=== PATIENT | male | born 1970 | race Caucasian/White ===

== ENCOUNTER 2016-07-12 08:19 | Emergency (ER) | payer OTHER ==
--- NOTE | 2016-07-12 08:58 | DIAGNOSTIC IMAGING REPORT ---
PROCEDURE: XR HAND 3 OR 4 VIEWS - RIGHT INDICATION: TRAUMA/INJURY TECHNIQUE: Four views. COMPARISON: None. FINDINGS: Osseous structures, joint spaces, and soft tissues are normal. IMPRESSION: 1. Normal right hand.
--- NOTE | 2016-07-12 09:48 | ED ORDER SUMMARY ---
..... Patient: JAMEEL CHI OrderSheet [facility] VisitID: [id number] [address] [place] [address] 45y, M Registration Date/Time: 07/12/2016 ORDER SHEET Weight: 108.8 kg (measured) Allergies: None GENERAL ORDERS: Hand 3 or 4V Right Urgent (08:40 07/12/2016 Treasure Hameed per protocol) (8:50 Marjan) MEDICATION ORDERS: Toradol IM 60 mg (NOW) (09:25 07/12/2016 Susie Mota) (Ack 9:29 Treasure Gill.Silvana) (9:41 Darrius Hameed) IV FLUIDS: ORDER SHEET NOTES: [Electronically signed by Glory Castro R.N. (15:20 07/12/2016)] [Electronically signed by Yunior De Souza Dr. (22:19 07/12/2016)] [Electronically locked/signed by Glory Castro R.N. (15:20 07/12/2016)]
--- NOTE | 2016-07-12 09:48 | ED CLINICAL REPORT ---
Clinical Report - Physicians/Mid Levels [facility] [address] [place] [place] [address] 07/12/2016 8:19 [id number] Time Seen: 09:05; initial patient contact. Arrived- By private vehicle. Historian- patient. HISTORY OF PRESENT ILLNESS Chief Complaint: Injury to the right middle finger. The injury happened just prior to arrival. Occurred at work. The patient sustained a crush injury- dropped heavy object on hand. Patient is experiencing moderate pain. Patient denies injury to the head or neck. REVIEW OF SYSTEMS The patient has had swelling. No tingling, numbness, weakness or skin laceration. All systems otherwise negative, except as recorded above. PAST HISTORY Fall. Sprain. Contusion. Neck Pain. Neck Injury. Prior Injury, Same Area. Cellulitis. Bursitis. Hypertension. ADDITIONAL SURGERIES: Knee Surgery. The patient's dominant hand is the right. SOCIAL HISTORY Current every day smoker. No alcohol use or drug use. ADDITIONAL NOTES The nursing notes have been reviewed with agreement regarding the chief complaint, PMH and patient medications and allergies. PHYSICAL EXAM Vital Signs: 07/12/2016 08:25 BP: 178/117. HR: 101. RR: 14. O2 saturation: 97%. Temp: 97.7 F. Pain level now: 6/10. Have been reviewed. Hypertensive. Tachycardic. Bradypneic. Temperature normal. Oxygen saturation normal. Appearance: Alert. Oriented X3. Skin: Skin warm and dry. Skin intact. Extremities: Right middle finger: moderate tenderness and mild swelling of the PIP joint; limited movement secondary to pain and swelling (diminished flexion). Neurovascular intact distally. No erythema, laceration or ecchymosis. No wrist injury. Hand and wrist exam otherwise negative. Extremities otherwise negative. Neuro, Vascular and Tendons: Vascular status intact. Sensation intact. Motor intact. Tendon function intact. Neuro: Oriented X 3. No motor deficit. No sensory deficit. LABS, X-RAYS, AND EKG Rt UE Digits X-ray: No fracture. Normal alignment. No bony lesion, air in the soft tissue or foreign body. Soft tissues normal. Joint spaces normal. Views: AP, lateral and oblique of 3rd finger. Technique: good. The X-rays were independently viewed by me and interpreted contemporaneously by me. Prior films were not available for comparison. Interpretation time: 09:39. PROGRESS AND PROCEDURES Course of Care: 09:49 07/12/16. Pt out of BP meds x 2 days, needs to go to the pharmacy to fill. Educated him on the importance of med compliance. Disposition: Discharged to work in good and improved condition. Condition: good. CLINICAL IMPRESSION Sprain of the proximal interphalangeal joint of the right middle finger. Uncontrolled essential hypertension. INSTRUCTIONS Apply ice for 20 minutes four times a day. Don't apply ice directly to skin. Brayan tape fingers until better. Your Current Medications: CONTINUE TAKING THE FOLLOWING MEDICATIONS: Metoprolol Succinate ER Oral : Tablet Extended Release 24 Hour 100 mg, states he has not taken it in 3days. Prescription Medications: Diclofenac 50 mg tablets: take 1 tablet orally every 8 hours as needed for pain or stiffness. Dispense thirty (30). No refill. Follow-up: Follow up with your doctor in about two days if not better. Call for an appointment. Blood pressure screening was not performed during this visit because the patient has an active diagnosis of hypertension. The patient should follow up with a primary care provider for blood pressure management. (Electronically signed by Yunior De Souza Dr. 07/12/2016 22:19)
--- NOTE | 2016-07-12 09:48 | ED ORDER SUMMARY ---
..... Patient: JAMEEL CHI OrderSheet [facility] VisitID: [id number] [address] [place] [address] 45y, M Registration Date/Time: 07/12/2016 ORDER SHEET Weight: 108.8 kg (measured) Allergies: None GENERAL ORDERS: Hand 3 or 4V Right Urgent (08:40 07/12/2016 Treasure Hameed per protocol) (8:50 Marjan) MEDICATION ORDERS: Toradol IM 60 mg (NOW) (09:25 07/12/2016 Susie Mota) (Ack 9:29 Treasure Gill.Silvana) (9:41 Darrius Hameed) IV FLUIDS: ORDER SHEET NOTES: [Electronically signed by Glory Castro R.N. (15:20 07/12/2016)] [Electronically signed by Yunior De Souza Dr. (22:19 07/12/2016)] [Electronically locked/signed by Glory Castro R.N. (15:20 07/12/2016)]
--- NOTE | 2016-07-12 09:48 | ED CLINICAL REPORT ---
Clinical Report - Physicians/Mid Levels [facility] [address] [place] [address] 07/12/2016 8:19 [id number] Time Seen: 09:05; initial patient contact. Arrived- By private vehicle. Historian- patient. HISTORY OF PRESENT ILLNESS Chief Complaint: Injury to the right middle finger. The injury happened just prior to arrival. Occurred at work. The patient sustained a crush injury- dropped heavy object on hand. Patient is experiencing moderate pain. Patient denies injury to the head or neck. REVIEW OF SYSTEMS The patient has had swelling. No tingling, numbness, weakness or skin laceration. All systems otherwise negative, except as recorded above. PAST HISTORY Fall. Sprain. Contusion. Neck Pain. Neck Injury. Prior Injury, Same Area. Cellulitis. Bursitis. Hypertension. ADDITIONAL SURGERIES: Knee Surgery. The patient's dominant hand is the right. SOCIAL HISTORY Current every day smoker. No alcohol use or drug use. ADDITIONAL NOTES The nursing notes have been reviewed with agreement regarding the chief complaint, PMH and patient medications and allergies. PHYSICAL EXAM Vital Signs: 07/12/2016 08:25 BP: 178/117. HR: 101. RR: 14. O2 saturation: 97%. Temp: 97.7 F. Pain level now: 6/10. Have been reviewed. Hypertensive. Tachycardic. Bradypneic. Temperature normal. Oxygen saturation normal. Appearance: Alert. Oriented X3. Skin: Skin warm and dry. Skin intact. Extremities: Right middle finger: moderate tenderness and mild swelling of the PIP joint; limited movement secondary to pain and swelling (diminished flexion). Neurovascular intact distally. No erythema, laceration or ecchymosis. No wrist injury. Hand and wrist exam otherwise negative. Extremities otherwise negative. Neuro, Vascular and Tendons: Vascular status intact. Sensation intact. Motor intact. Tendon function intact. Neuro: Oriented X 3. No motor deficit. No sensory deficit. LABS, X-RAYS, AND EKG Rt UE Digits X-ray: No fracture. Normal alignment. No bony lesion, air in the soft tissue or foreign body. Soft tissues normal. Joint spaces normal. Views: AP, lateral and oblique of 3rd finger. Technique: good. The X-rays were independently viewed by me and interpreted contemporaneously by me. Prior films were not available for comparison. Interpretation time: 09:39. PROGRESS AND PROCEDURES Course of Care: 09:49 07/12/16. Pt out of BP meds x 2 days, needs to go to the pharmacy to fill. Educated him on the importance of med compliance. Disposition: Discharged to work in good and improved condition. Condition: good. CLINICAL IMPRESSION Sprain of the proximal interphalangeal joint of the right middle finger. Uncontrolled essential hypertension. INSTRUCTIONS Apply ice for 20 minutes four times a day. Don't apply ice directly to skin. Brayan tape fingers until better. Your Current Medications: CONTINUE TAKING THE FOLLOWING MEDICATIONS: Metoprolol Succinate ER Oral : Tablet Extended Release 24 Hour 100 mg, states he has not taken it in 3days. Prescription Medications: Diclofenac 50 mg tablets: take 1 tablet orally every 8 hours as needed for pain or stiffness. Dispense thirty (30). No refill. Follow-up: Follow up with your doctor in about two days if not better. Call for an appointment. Blood pressure screening was not performed during this visit because the patient has an active diagnosis of hypertension. The patient should follow up with a primary care provider for blood pressure management. (Electronically signed by Yunior De Souza Dr. 07/12/2016 22:19)
--- NOTE | 2016-07-12 09:48 | ED NURSING NOTES ---
Clinical Report - Nurses [facility] [address] [place] [address] 07/12/2016 8:19 Patient: JAMEEL CHI TRIAGE Triage time 08:25. Acuity: LEVEL 4. Chief Complaint: (finger injury). 08:33 07/12/16. Alert. No acute distress. SEPSIS SCREEN: Sepsis Screen. Negative (no infection suspected/documented). AUBREE COMA SCORE: Aubree Coma Scale: 15- eyes open spontaneously (4); best verbal response- oriented x 4 (5); best motor response- obeys commands (6). --08:34 Glory Castro R.N. 08:25 07/12/16. BP: 178/117 taken while sitting. HR: 101. RR: 14. O2 saturation: 97%. Temp: 97.7 F. Pain level now: 10. Additional comments: pt states he usually takes metoprolol, but hasn't for several days. . --08:34 Glory Castro R.N. Weight: 108.8 kg measured. Height/Length: 74 inches Measured. BMI: 30.8. --08:24 Glory Castro R.N. Medications Metoprolol Succinate ER Oral (Tablet Extended Release 24 Hour 100 mg) (states he has not taken it in 3days). --08:34 Glory Castro R.N. The following entry was struck by Glory Castro R.N., 08:34 (07/12/16) Reason - wrong value. <<STRICKEN ENTRY-- None. --08:27 Glory Castro R.N. --END STRIKE>>. Allergies None. --08:28 Glory Castro R.N. History Arrived by private vehicle. Historian: patient. Location of injuries: right middle finger. This occurred today. ( pt states he injured his finger while working on a car. pt says he injured the same finger a couple months ago and "it has never been right since"). He has had back pain (comes and goes). PAST MEDICAL HX: Immunizations: status is unknown. SOCIAL HX: Light tobacco smoker- less than 1/2 a pack per day. No alcohol use or drug use. FALL RISK ASSESSMENT: Fall risk assessment completed. No fall risk identified. NUTRITIONAL RISK ASSESSMENT: The nutritional risk assessment revealed no deficiencies. FUNCTIONAL ASSESSMENT: Functional assessment: no impairments noted. LEARNING NEEDS ASSESSMENT: The learning needs assessment revealed no barriers. SKIN INTEGRITY ASSESSMENT: Skin integrity risk assessment completed. No skin integrity risk identified. --08:34 Glory Castro R.N. PROBLEMS: Fall. Sprain. Contusion. Neck Pain. Neck Injury. Prior Injury, Same Area. Cellulitis. Bursitis. Hypertension. Tetanus Status. Immunizations. --08:28 Glory Castro R.N. ADDITIONAL SURGERIES: Knee Surgery. --08:28 Glory Castro R.N. Interventions ID band on patient. To treatment room. --08:34 Glory Castro R.N. PHYSICAL ASSESSMENT 08:38 07/12/16. Ambulatory to room. GENERAL / NEURO / PSYCH: Alert. Oriented X 4. Appears in no acute distress. RESPIRATORY: Respirations not labored. CVS: Pulses within normal limits. Capillary refill less than 2 seconds. EXTREMITIES: Right middle finger: tenderness and swelling. ( R middle finger looks swollen, possibly deformed. Pt is able to move finger with pain.). SKIN: Skin is warm and dry. --08:38 Glory Castro R.N. NURSING PROGRESS NOTES 08:38 07/12/16. Two patient identifiers checked. Call light placed in reach. Bed placed in lowest position. Brakes of bed on. Patient ready for evaluation- chart flagged and notification provided. --08:38 Glory Castro R.N. 09:41 07/12/2016 Toradol (Ketorolac Tromethamine) IM 60 mg given. Allergies verified and confirmed 5 rights. --09:41 Vijay Kraft R.N. 09:59 Jul 12 2016. Right third and fourth edgard-taped; padding placed between digits. --10:01 Beau Samuel. DISPOSITION / DISCHARGE 10:03 07/12/16. The goals identified in the patient's plan of care were met. Discharge instructions provided and reviewed with the patient. Reviewed medication(s). Treatments reviewed. Patient verbalized understanding. Written instructions provided in [place]. The patient was discharged by the physician. He was discharged home. He left the Emergency Department ambulatory. FALL RISK ASSESSMENT: Fall risk assessment completed. No fall risk identified. --10:03 Glory Castro R.N. 10:02 07/12/16. BP: 179/119. HR: 110. RR: 16. O2 saturation: 98%. Temp: deferred. Pain level now: 07/22. --10:03 Glory Castro R.N. Departure time: 10:01. --10:03 Glory Castro R.N. Locked/Released at 07/12/2016 15:20 by Glory Castro R.N.
--- NOTE | 2016-07-12 22:20 | ED MAR SUMMARY ---
..... Medication Administration Record [facility] [address] [place] [place] [address] Patient: JAMEEL CHI Visit ID: [id number] 45y, M Weight: 108.8 kg Height/Length: 74 in BMI: 30.8 ALLERGIES: None Given 09:41 07/12/2016 Vijay Kraft R.N. Medication Administered: TORADOL [IM] (KETOROLAC TROMETHAMINE), Dose: 60 mg IM. Medication Ordered: Toradol IM 60 mg (NOW).
--- NOTE | 2016-07-12 22:20 | ED MAR SUMMARY ---
..... Medication Administration Record [facility] [address] [place] [address] Patient: JAMEEL CHI Visit ID: [id number] 45y, M Weight: 108.8 kg Height/Length: 74 in BMI: 30.8 ALLERGIES: None Given 09:41 07/12/2016 Vijay Kraft R.N. Medication Administered: TORADOL [IM] (KETOROLAC TROMETHAMINE), Dose: 60 mg IM. Medication Ordered: Toradol IM 60 mg (NOW).
--- NOTE | 2016-07-12 22:20 | ED DISCHARGE INSTRUCTIONS ---
Patient: JAMEEL CHI General Instructions [facility] VisitID: [id number] [place] [address] 45y, M Registration Date/Time: 07/12/2016 Sprain of the proximal interphalangeal joint of the right middle finger. Uncontrolled essential hypertension. INSTRUCTIONS Apply ice for 20 minutes four times a day. Don't apply ice directly to skin. Edgard tape fingers until better. Your Current Medications: CONTINUE TAKING THE FOLLOWING MEDICATIONS: Metoprolol Succinate ER Oral : Tablet Extended Release 24 Hour 100 mg, states he has not taken it in 3days. Prescription Medications: Diclofenac 50 mg tablets: take 1 tablet orally every 8 hours as needed for pain or stiffness. Dispense thirty (30). No refill. Follow-up: Follow up with your doctor in about two days if not better. Call for an appointment. Blood pressure screening was not performed during this visit because the patient has an active diagnosis of hypertension. The patient should follow up with a primary care provider for blood pressure management. ADDITIONAL INFORMATION Sprain, Finger A sprain is a stretching or tearing of the ligaments that hold a joint together. There are no broken bones. Sprains take from three to six weeks to heal. A sprained finger may be treated with a splint or "edgard tape" (taping the injured finger to the one next to it for support). Minor sprains may require no additional support. Home care The following guidelines will help you care for your injury at home: 1) Keep your hand elevated to reduce pain and swelling. This is very important during the first 48 hours. 2) Apply an ice pack (ice cubes in a plastic bag, wrapped in a towel) over the injured area for 20 minutes every 12 hours the first day. You should continue with ice packs 34 times a day for the next two days. Continue the use of ice packs for relief of pain and swelling as needed. 3) If edgard tape was applied and it becomes wet or dirty, change it. You may replace it with paper, plastic or cloth tape. Cloth tape and paper tapes must be kept dry. Keep the edgard tape in place for at least four weeks. 4) If a splint was applied, wear it for the time advised. 5) You may use acetaminophen or ibuprofen to control pain, unless another pain medicine was prescribed.If you have chronic liver or kidney disease or ever had a stomach ulcer or GI bleeding, talk with your doctor before using these medicines. Follow-up care Follow up with your doctor, or as directed, if the pain does not begin to improve. Finger joints will become stiff if immobile for too long. If a splint was applied, ask your doctor when it is safe to begin [id number] exercises. Any X-rays you had today dont show any broken bones, breaks, or fractures. Sometimes fractures dont show up on the first X-ray. Bruises and sprains can sometimes hurt as much as a fracture. These injuries can take time to heal completely. If your symptoms dont improve or they get worse, talk with your doctor. You may need a repeat X-ray. When to seek medical care Get prompt medical attention if any of the following occur: Pain or swelling increases Fingers or hand becomes cold, blue, numb, or tingly High Blood Pressure --Established High Blood Pressure (Hypertension) is a chronic disease. The cause is unknown in most cases. It can usually be controlled with lifestyle changes and/or medicines. Symptoms of high blood pressure may include headache, dizziness, visual changes, chest pain and shortness of breath. Sometimes it causes no symptoms at all. However, even if there are no symptoms, untreated high blood pressure increases the risk of heart attack, also known as acute myocardial infarction, or AMI, and stroke. It is a serious health risk and should not be ignored. A normal blood pressure is 120/80 or less. The first (top) number is the "systolic" pressure. The second (bottom) number is the "diastolic" pressure. Hypertension exists when either the top number is 140 or higher, OR the bottom number is 90 or higher on repeated measurements. Home Care: All patients with high blood pressure should do the following to lower their pressure. If you are on medicines, then these methods may reduce or eliminate your need for medicines in the future. Begin a weight loss program if you are overweight. Reduce your salt intake. Avoid high salt foods (olives, pickles, smoked meats, salted potato chips, etc.). Do not add salt to your food at the table. Use only small amounts of salt when cooking. Begin an exercise program. Discuss with your doctor what type of exercise program would be best for you. It doesn't have to be difficult. Even brisk walking for 20 minutes three times a week is a good form of exercise. Avoid medicines which contain heart stimulants. This includes many cold and sinus decongestant pills and sprays as well as diet pills. Check the warnings about hypertension on the label. Stimulants such as amphetamine or cocaine could be lethal for someone with hypertension. Never take these. Limit your caffeine intake or switch to caffeine-free products. Stop smoking. If you are a long-time smoker, this can be hard. Enroll in a stop-smoking program to improve your chance of success. Learning how to handle stress better is an important part of any program to lower blood pressure. Learn about relaxation methods such as meditation, yoga or biofeedback. If medicines were prescribed, take them exactly as directed. Missing doses may cause your blood pressure get out of control. Consider buying an automatic blood pressure machine (available at most pharmacies). Use this to monitor your blood pressure at home and report the results to your doctor. Follow Up: Regular visits to your own physician for blood pressure checks and medicine adjustment is an important part of your care. Make a follow-up appointment as directed by our staff. Get Prompt Medical Attention if any of the following occur: Chest pain or shortness of breath Severe headache Throbbing or rushing sound in the ears Nosebleed Sudden severe abdominal pain Extreme drowsiness, confusion or fainting Dizziness or vertigo (dizziness with spinning sensation) Weakness of an arm or leg or one side of the face Difficulty with speech or vision You have been given the following additional information: Sprain Finger Hypertension, Established (Electronically signed by Yunior De Souza Dr. 07/12/2016 22:19)
--- NOTE | 2016-07-12 22:20 | ED MED RECONCILIATION SUMMARY ---
Patient: JAMEEL CHI Medication Reconciliation Report [facility] VisitID: [id number] [address] [place] [address] 45y, M Registration Date/Time: 07/12/2016 Weight: 108.8 kg Height/Length: 74 in. BMI: 30.8 ALLERGIES: None The patient's Home Medications are listed below: CONTINUE TAKING THE FOLLOWING MEDICATIONS: Metoprolol Succinate ER Oral (100 mg), states he has not taken it in 3days The source(s) of the original Home Medication information: Not obtained. The following Medications were given to the patient in the Emergency Department: Toradol [IM] IM 60 mg, administered: 07/12/2016 9:41:00 AM The following Medications were prescribed to the patient: Diclofenac 50 mg tablets: take 1 tablet orally every 8 hours as needed for pain or stiffness. Dispense thirty (30). No refill. -- Yunior De Souza Dr.
--- NOTE | 2016-07-12 22:20 | ED MED RECONCILIATION SUMMARY ---
Patient: JAMEEL CHI Medication Reconciliation Report [facility] VisitID: [id number] [address] [place] [address] 45y, M Registration Date/Time: 07/12/2016 Weight: 108.8 kg Height/Length: 74 in. BMI: 30.8 ALLERGIES: None The patient's Home Medications are listed below: CONTINUE TAKING THE FOLLOWING MEDICATIONS: Metoprolol Succinate ER Oral (100 mg), states he has not taken it in 3days The source(s) of the original Home Medication information: Not obtained. The following Medications were given to the patient in the Emergency Department: Toradol [IM] IM 60 mg, administered: 07/12/2016 9:41:00 AM The following Medications were prescribed to the patient: Diclofenac 50 mg tablets: take 1 tablet orally every 8 hours as needed for pain or stiffness. Dispense thirty (30). No refill. -- Yunior De Souza Dr.
== END 2016-07-12 10:01 | disposition home or self-care (01) ==
LOC: ED SRH 08:19
DX: S63.634A Sprain of interphalangeal joint of right ring finger, initial encounter (principal); I10 Essential (primary) hypertension; W23.0XXA Caught, crushed, jammed, or pinched between moving objects, initial encounter; Y93.9 Activity, unspecified; Y92.9 Unspecified place or not applicable; Y99.0 Civilian activity done for income or pay

== ENCOUNTER 2016-09-29 15:16 | Emergency (ER) | payer OTHER ==
--- NOTE | 2016-09-29 18:04 | ED NURSING NOTES ---
Clinical Report - Nurses [facility] [address] [place] [address] 09/29/2016 15:17 [id number] Triage time 15:Sep 29 2016. Chief Complaint: HEADACHE. SEPSIS SCREEN: Sepsis Screen. Negative (no infection suspected/documented). AUBREE COMA SCORE: Aubree Coma Scale: 14- eyes open to voice (3); best verbal response- oriented x 4 (5); best motor response- obeys commands (6). --15:30 Kerwin Osborne R.N. 15:25 09/29/16. BP: 124/91. HR: 95. RR: 16. O2 saturation: 99% on room air. Pain level now: 02/21. --15:30 Kerwin Osborne R.N. 18:35 09/29/16. Temp: 98.2 F. --18:36 Kerwin Osborne R.N. Weight: 113.3 kg stated. Height/Length: 74 inches Per Patient. BMI: 32.1. --15:24 Kerwin Osborne R.N. Medications Metoprolol. --15:27 Kerwin Osborne R.N. Allergies No Known Drug Allergy. --15:27 Kerwin Osborne R.N. History Arrived by private vehicle. Historian: patient. Accompanied by friend. Primary physician (Dr. Case). This started 4 days ago. ( Pt experienced a neck injury 3 years ago and has had subsequent headaches ever since.). He has had nausea, weakness and numbness. 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 PAST MEDICAL HX: Hypertension. Headaches. Immunizations: up-to-date. SOCIAL HX: Light tobacco smoker- less than 1/2 a pack per day. No alcohol use or drug use. No recent travel. No infectious disease exposure. No known contact with a sick individual. SELF HARM ASSESSMENT: A self harm assessment was performed. The patient answered "yes" to the question "Have you recently felt down, depressed, or hopeless?" and "no" to the question "Do you have thoughts of harming or killing yourself?", "Are you here because you tried to hurt yourself?" and "Have you recently had thoughts about harming or killing others?". FALL RISK ASSESSMENT: Fall risk assessment completed. No fall risk identified. NUTRITIONAL RISK ASSESSMENT: The nutritional risk assessment revealed no deficiencies. FUNCTIONAL ASSESSMENT: Functional assessment: no impairments noted. LEARNING NEEDS ASSESSMENT: The learning needs assessment revealed no barriers. ABUSE ASSESSMENT: Abuse assessment: (Pt is homeless, states he feels unsafe for that reason.) The patient was asked "Do you feel safe in your home?". SKIN INTEGRITY ASSESSMENT: Skin integrity risk assessment completed. No skin integrity risk identified. --15:30 Kerwin Osborne R.N. PROBLEMS: Fall. Sprain. Contusion. Neck Pain. Neck Injury. Prior Injury, Same Area. Cellulitis. Bursitis. Hypertension. Tetanus Status. Immunizations. --15:27 Kerwin Osborne R.N. ADDITIONAL SURGERIES: Knee Surgery. --15:27 Kerwin Osborne R.N. Pyloric Stenosis Surgery. R ankle ORIF. --15:28 Kerwin Osborne R.N. Interventions ID band on patient. To treatment room. --15:30 Kerwin Osborne R.N. PHYSICAL ASSESSMENT Ambulatory to room. GENERAL / NEURO / PSYCH: Oriented X 4. Appears in pain. Mood/affect abnormal (depressed). Pupillary exam: Pupils are equal, round, and reactive to light. HEENT: No facial asymmetry noted. Photophobia present. RESPIRATORY: Respirations not labored. SKIN: Skin is warm and dry. --15:31 Kerwin Osborne R.N. GI / : The patient has had nausea. --15:31 Kerwin Osborne R.N. NURSING PROGRESS NOTES The plan of care for this patient has been created. Head of bed elevated. Reassurance given. Lights dimmed. Two patient identifiers checked. Call light placed in reach. Side rails up. Patient ready for evaluation. --15:31 Kerwin Osborne R.N. 16:26 09/29/2016 Site #1 started via IV in the right antecubital space with an 20g angiocath, with aseptic technique and good blood return; one attempt. Saline lock flushed with 10 mL saline. --16:26 Kerwin Osborne R.N. 16:26 09/29/2016 Started bag #1 1000 mL IV Fluids IV NS (Saline); bolus of 1000 mL wide open via site #1. Allergies verified and confirmed 5 rights. IV patency established. IV site checked: no pain, redness, or swelling. IV flushed thoroughly pre- and post-medication administration. Completed per protocol. --16:26 Kerwin Osborne R.N. 16:35 09/29/2016 Reglan (Metoclopramide HCl) IVP 10 mg given over 2 minute(s) via site #1. Allergies verified and confirmed 5 rights. IV patency established. IV site checked: no pain, redness, or swelling. IV flushed thoroughly pre- and post-medication administration. IVP given by RN. --16:35 Kerwin Osborne R.N. 16:36 09/29/2016 Toradol IVP 30 mg given over 2 minute(s) via site #1. Allergies verified and confirmed 5 rights. IV patency established. IV site checked: no pain, redness, or swelling. IV flushed thoroughly pre- and post-medication administration. IVP given by RN. --16:36 Kerwin Osborne R.N. 16:38 09/29/2016 Benadryl (DiphenhydrAMINE HCl) IVP 25 mg given over 2 minute(s) via site #1. Allergies verified, confirmed 5 rights and sedative warning given to the patient. IV patency established. IV site checked: no pain, redness, or swelling. IV flushed thoroughly pre- and post-medication administration. IVP given by RN. --16:38 Kerwin Osborne R.N. ( Pt c/o severe discomfort to his neck, refused repositioning interventions or additional pillows, pain medications administered.). --16:39 Kerwin Osborne R.N. 16:38 09/29/16. BP: 123/87. HR: 82. RR: 16. O2 saturation: 97% on room air. Pain level now: 02/21. --16:39 Kerwin Osborne R.N. 17:28 09/29/2016 Decadron IVP 10 mg given over 2 minute(s) via site #1. Allergies verified and confirmed 5 rights. IV patency established. IV site checked: no pain, redness, or swelling. IV flushed thoroughly pre- and post-medication administration. IVP given by RN. --17:28 Kerwin Osborne R.N. ( Pt reports he is feeling a little bit better, resting in room, no needs voiced at this time.). --17:30 Kerwin Osborne R.N. 17:09/29/2016 IV Fluids IV NS Discontinued: bag #1 infused. Total amount infused: 1000 mL. IV patency established. IV site checked: no pain, redness, or swelling. IV flushed thoroughly. --17:31 Kerwin Osborne R.N. 17:09/29/2016 Reglan IVP Response: no adverse reaction symptoms have improved. --17:31 Kerwin Osborne R.N. 17:09/29/2016 Toradol IVP Response: no adverse reaction pain is improving. Symptoms have improved. --17:31 Kerwin Osborne R.N. 17:09/29/2016 Benadryl IVP Response: no adverse reaction symptoms have improved. --17:31 Kerwin Osborne R.N. 17:09/29/16. BP: 126/85. HR: 96. RR: 18. O2 saturation: 100% on room air. --17:35 Kerwin Osborne R.N. 18:20 09/29/2016 Site #1 removed upon discharge. Bandaid applied. --18:25 Dalton Macias R.N. 18:20 09/29/2016 Decadron IVP Response: no adverse reaction. --18:35 Kerwin Osborne R.N. DISPOSITION / DISCHARGE No learning barriers present. Discharge instructions provided and reviewed with the patient. Reviewed medication(s) side effects and course information. Prescription(s) given to the patient. Patient verbalized understanding. Written instructions provided in Yi. The patient was discharged by the nurse practitioner. He was discharged home. He left the Emergency Department ambulatory and via private vehicle. ( pt dc only by this RN, pt ambulatory to lobby with steady gait, given rx and f/u). --18:26 Dalton Macias R.N. 18:24 09/29/16. BP: 129/86. HR: 78. RR: 17. O2 saturation: 99%. Temp: 98.2 F. Pain level now: 07/22. --18:26 Dalton Macias R.N. Departure time: 182. --18:27 Dalton Macias R.N. Locked/Released at 09/29/2016 18:36 by Kerwin Osborne R.N.
--- NOTE | 2016-09-29 18:04 | ED ORDER SUMMARY ---
..... Patient: JAMEEL CHI OrderSheet [facility] VisitID: [id number] [address] [place] [address] 46y, M Registration Date/Time: 09/29/2016 ORDER SHEET Weight: 113.3 kg (stated) Allergies: No Known Drug Allergy GENERAL ORDERS: MEDICATION ORDERS: IV FLUIDS: Toradol IV 30 mg (NOW) (16:18 09/29/2016 Jaxon Mota) (16:36 MCook R.N.) IV NS : initial bolus 1000 mL (1000 mL/hr), then none - for X1 (NOW) (16:18 09/29/2016 Jxaon Mota) (16:26 Mehreen R.N.) Reglan IV 10 mg (NOW) (16:09/29/2016 Jaxon Mota) (16:35 Mehreen R.N.) Benadryl IV 25 mg (NOW) (16:19 09/29/2016 Jaxon Mota) (16:38 Mehreen R.N.) Decadron IV 10 mg (NOW) (16:19 09/29/2016 Jaxon Mota) (17:28 Mehreen R.N.) ORDER SHEET NOTES: [Electronically signed by Kerwin Osborne R.N. (18:36 09/29/2016)] [Electronically signed by Ernie Rabago Dr. (09:51 10/06/2016)] [Electronically locked/signed by Kerwin Osborne R.N. (18:36 09/29/2016)]
--- NOTE | 2016-09-29 18:04 | ED CLINICAL REPORT ---
Clinical Report - Physicians/Mid Levels [facility] [address] [place] [address] 09/29/2016 15:17 Patient: JAMEEL CHI Time Seen: 1612. Arrived- By private vehicle. Historian- patient. HISTORY OF PRESENT ILLNESS Chief Complaint: HEADACHE. Is still present and worsening. (unchanged). This started past several days; reached max intensity today. It was gradual in onset and has been constant but is not gone now. Patient was last known well (several days ago). Onset during rest. It is described as similar to previous headaches. Has had neck pain and located in the occipital region. At its maximum, severity described as severe. When seen in the E.D., severity described as severe. Modifying factors: worsened by bright light and noise; relieved by nothing. No preceding symptoms, blurred vision, photophobia, associated nausea or numbness. No vomiting. No recent travel. Similar symptoms previously: Many times. Recent medical care: Not recently seen/assessed. REVIEW OF SYSTEMS All systems otherwise negative, except as recorded above. PAST HISTORY See nurses notes. Medications: Metoprolol. Allergies: No Known Drug Allergy. SOCIAL HISTORY Smoker- current status unknown. No alcohol use or drug use. No recent travel. Is a local resident. ADDITIONAL NOTES The nursing notes have been reviewed. PHYSICAL EXAM Vital Signs: 09/29/2016 15:25 BP: 124/91. HR: 95. RR: 16. O2 saturation: 99%. Pain level now: 10/10. Oxygen saturation normal. Appearance: Alert. No acute distress. (non-toxic. pleasant. cooperative.). Eyes: Pupils equal, round and reactive to light. Eyes normal inspection. ENT: Ears normal. Nose normal. Pharynx normal. Neck: Normal inspection. Neck supple. No meningeal signs. CVS: Normal heart rate and rhythm. Heart sounds normal. Pulses normal. Respiratory: No respiratory distress. Breath sounds normal. Abdomen: Soft and nontender. No organomegaly. Skin: Skin warm and dry. Normal skin color. No rash. Normal skin turgor. Extremities: Extremities exhibit normal ROM. No lower extremity edema. Neuro: Oriented X 3. Alert. Mood/affect normal. Speech normal. Cranial nerves normal (as tested). No cerebellar findings. No motor deficit. No sensory deficit. Reflexes normal. PROGRESS AND PROCEDURES Course of Care: Patient is a pleasant 46 yo male with hx of headaches likely from injury 3 years ago presenting for evaluation of headache. Patient as been evaluated for SAH, increased ICP, meningitis, and space occupying lesion. Patients exam and history are not consistent with these entities. Patient is agreeable to treatment for headache. Medications have been ordered after reviewing allergies and intolerances. Patient will be reevaluated after the medications have been given. Time course for headache reached max intensity > 1 hour after onset of headache. Patient was reevaluated and found to be significantly improved. Patient reports being able to return home and follow up with doctor. Repeat examination continues to be benign. I discussed with the patient workup, diagnosis, home care, follow-up, and return precautions. All questions have been answered. The patient expressed understanding of these instructions and was agreeable to them. Do not feel patient needs to be admitted to the hospital or require further ED workup/evaluation. Disposition: Discharged. Condition: good. CLINICAL IMPRESSION Acute headache (posterior). 09/29/2016 17:31 BP: 126/85. HR: 96. RR: 18. O2 saturation: 100%. 09/29/2016 16:38 BP: 123/87. HR: 82. RR: 16. O2 saturation: 97%. Pain level now: 10/10. Moderate nausea. No vomiting. INSTRUCTIONS Warnings: GENERAL WARNINGS: Return or contact your physician immediately if your condition worsens or changes unexpectedly, if not improving as expected, or if other problems arise. SPECIFICALLY, return if you develop fever, vomiting, numbness, weakness, difficulty thinking, visual disturbances, fainting or extreme fatigue. Your Current Medications: CONTINUE TAKING THE FOLLOWING MEDICATIONS: Metoprolol*. Prescription Medications: Zofran (orally disintegrating tablets) 4 mg: take 1 orally every 8 hours as needed for nausea and vomiting. Dispense ten (10). No refill. Substitution is permissible. [place] 5 mg / 325 mg tablets: take 1 orally every 6 hours as needed for pain. Dispense ten (10). No refill. Substitution is permissible. Follow-up: Return to the emergency department as needed. Follow up with your doctor in three days. Reason for referral: recheck today's concerns. Screening today revealed the patient's blood pressure to be in the normal range. The patient should follow up with a primary care provider for blood pressure management. Understanding of the discharge instructions verbalized by patient. (Electronically signed by Ernie Rabago Dr. 10/06/2016 9:51)
--- NOTE | 2016-09-29 18:04 | ED ORDER SUMMARY ---
..... Patient: JAMEEL CHI OrderSheet [facility] VisitID: [id number] [address] [place] [address] 46y, M Registration Date/Time: 09/29/2016 ORDER SHEET Weight: 113.3 kg (stated) Allergies: No Known Drug Allergy GENERAL ORDERS: MEDICATION ORDERS: IV FLUIDS: Toradol IV 30 mg (NOW) (16:18 09/29/2016 Jaxon Mota) (16:36 MCook R.N.) IV NS : initial bolus 1000 mL (1000 mL/hr), then none - for X1 (NOW) (16:18 09/29/2016 Jaxon Mota) (16:26 Mehreen R.N.) Reglan IV 10 mg (NOW) (16:09/29/2016 Jaxon Mota) (16:35 Mehreen R.N.) Benadryl IV 25 mg (NOW) (16:19 09/29/2016 Jaxon Mota) (16:38 Mehreen R.N.) Decadron IV 10 mg (NOW) (16:19 09/29/2016 Jaxon Mota) (17:28 Mehreen R.N.) ORDER SHEET NOTES: [Electronically signed by Kerwin Osborne R.N. (18:36 09/29/2016)] [Electronically signed by Ernie Rabago Dr. (09:51 10/06/2016)] [Electronically locked/signed by Kerwin Osborne R.N. (18:36 09/29/2016)]
--- NOTE | 2016-10-06 09:52 | ED MED RECONCILIATION SUMMARY ---
Patient: JMAEEL CHI Medication Reconciliation Report [facility] VisitID: [id number] [address] [place] [address] 46y, M Registration Date/Time: 09/29/2016 Weight: 113.3 kg Height/Length: 74 in. BMI: 32.1 ALLERGIES: No Known Drug Allergy The patient's Home Medications are listed below: CONTINUE TAKING THE FOLLOWING MEDICATIONS: Metoprolol The source(s) of the original Home Medication information: Not obtained. The following Medications were given to the patient in the Emergency Department: IV NS IV Fluids bolus 1000 mL wide open, administered: 09/29/2016 4:26:00 PM Reglan [IVP] IVP 10 mg, administered: 09/29/2016 4:35:00 PM Toradol [IVP] IVP 30 mg, administered: 09/29/2016 4:36:00 PM Benadryl [IVP] IVP 25 mg, administered: 09/29/2016 4:38:00 PM Decadron [IVP] IVP 10 mg, administered: 09/29/2016 5:28:00 PM The following Medications were prescribed to the patient: Zofran (orally disintegrating tablets) 4 mg: take 1 orally every 8 hours as needed for nausea and vomiting. Dispense ten (10). No refill. Substitution is permissible. -- Ernie Rabago Dr. [place] 5 mg / 325 mg tablets: take 1 orally every 6 hours as needed for pain. Dispense ten (10). No refill. Substitution is permissible. -- Ernie Rabago Dr.
--- NOTE | 2016-10-06 09:52 | ED MED RECONCILIATION SUMMARY ---
Patient: JAMEEL CHI Medication Reconciliation Report [facility] VisitID: [id number] [address] [place] [address] 46y, M Registration Date/Time: 09/29/2016 Weight: 113.3 kg Height/Length: 74 in. BMI: 32.1 ALLERGIES: No Known Drug Allergy The patient's Home Medications are listed below: CONTINUE TAKING THE FOLLOWING MEDICATIONS: Metoprolol The source(s) of the original Home Medication information: Not obtained. The following Medications were given to the patient in the Emergency Department: IV NS IV Fluids bolus 1000 mL wide open, administered: 09/29/2016 4:26:00 PM Reglan [IVP] IVP 10 mg, administered: 09/29/2016 4:35:00 PM Toradol [IVP] IVP 30 mg, administered: 09/29/2016 4:36:00 PM Benadryl [IVP] IVP 25 mg, administered: 09/29/2016 4:38:00 PM Decadron [IVP] IVP 10 mg, administered: 09/29/2016 5:28:00 PM The following Medications were prescribed to the patient: Zofran (orally disintegrating tablets) 4 mg: take 1 orally every 8 hours as needed for nausea and vomiting. Dispense ten (10). No refill. Substitution is permissible. -- Ernie Rabago Dr. [place] 5 mg / 325 mg tablets: take 1 orally every 6 hours as needed for pain. Dispense ten (10). No refill. Substitution is permissible. -- Ernie Rabago Dr.
--- NOTE | 2016-10-06 09:52 | ED MAR SUMMARY ---
..... Medication Administration Record [facility] [address] [place] [address] Patient: JAMEEL CHI Visit ID: [id number] 46y, M Weight: 113.3 kg Height/Length: 74 in BMI: 32.1 ALLERGIES: No Known Drug Allergy Start 16:26 09/29/2016 Kerwin Osborne R.N., Stop 17:31 09/29/2016 Kerwin Osborne R.N. Medication Administered: IV NS (SALINE), Dose: IV Fluids, Bolus: 1000 mL wide open, Dispensed: 1000 mL bag, Site: #1 right AC. Medication Ordered: IV NS : initial bolus 1000 mL (1000 mL/hr), then none - for X1 (NOW). Given 16:35 09/29/2016 Kerwin Osborne R.N. Medication Administered: REGLAN [IVP] (METOCLOPRAMIDE HCL), Dose: 10 mg IVP over 2 minute(s), Site: #1 right AC. Medication Ordered: Reglan IV 10 mg (NOW). Given 16:36 09/29/2016 Kerwin Osborne R.N. Medication Administered: TORADOL [IVP], Dose: 30 mg IVP over 2 minute(s), Site: #1 right AC. Medication Ordered: Toradol IV 30 mg (NOW). Given 16:38 09/29/2016 Kerwin Osborne R.N. Medication Administered: BENADRYL [IVP] (DIPHENHYDRAMINE HCL), Dose: 25 mg IVP over 2 minute(s), Site: #1 right AC. Medication Ordered: Benadryl IV 25 mg (NOW). Given 17:28 09/29/2016 Kerwin Osborne R.N. Medication Administered: DECADRON [IVP], Dose: 10 mg IVP over 2 minute(s), Site: #1 right AC. Medication Ordered: Decadron IV 10 mg (NOW).
--- NOTE | 2016-10-06 09:52 | ED MAR SUMMARY ---
..... Medication Administration Record [facility] [address] [place] [address] Patient: JAMEEL CHI Visit ID: [id number] 46y, M Weight: 113.3 kg Height/Length: 74 in BMI: 32.1 ALLERGIES: No Known Drug Allergy Start 16:26 09/29/2016 Kerwin Osborne R.N., Stop 17:31 09/29/2016 Kerwin Osborne R.N. Medication Administered: IV NS (SALINE), Dose: IV Fluids, Bolus: 1000 mL wide open, Dispensed: 1000 mL bag, Site: #1 right AC. Medication Ordered: IV NS : initial bolus 1000 mL (1000 mL/hr), then none - for X1 (NOW). Given 16:35 09/29/2016 Kerwin Osborne R.N. Medication Administered: REGLAN [IVP] (METOCLOPRAMIDE HCL), Dose: 10 mg IVP over 2 minute(s), Site: #1 right AC. Medication Ordered: Reglan IV 10 mg (NOW). Given 16:36 09/29/2016 Kerwin Osborne R.N. Medication Administered: TORADOL [IVP], Dose: 30 mg IVP over 2 minute(s), Site: #1 right AC. Medication Ordered: Toradol IV 30 mg (NOW). Given 16:38 09/29/2016 Kerwin Osborne R.N. Medication Administered: BENADRYL [IVP] (DIPHENHYDRAMINE HCL), Dose: 25 mg IVP over 2 minute(s), Site: #1 right AC. Medication Ordered: Benadryl IV 25 mg (NOW). Given 17:28 09/29/2016 Kerwin Osborne R.N. Medication Administered: DECADRON [IVP], Dose: 10 mg IVP over 2 minute(s), Site: #1 right AC. Medication Ordered: Decadron IV 10 mg (NOW).
--- NOTE | 2016-10-06 09:52 | ED DISCHARGE INSTRUCTIONS ---
Patient: JAMEEL CHI General Instructions [facility] VisitID: [id number] [place] [address] 46y, M Registration Date/Time: 09/29/2016 Acute headache (posterior). 09/29/2016 17:31 BP: 126/85. HR: 96. RR: 18. O2 saturation: 100%. 09/29/2016 16:38 BP: 123/87. HR: 82. RR: 16. O2 saturation: 97%. Pain level now: 10. Moderate nausea. No vomiting. INSTRUCTIONS Warnings: GENERAL WARNINGS: Return or contact your physician immediately if your condition worsens or changes unexpectedly, if not improving as expected, or if other problems arise. SPECIFICALLY, return if you develop fever, vomiting, numbness, weakness, difficulty thinking, visual disturbances, fainting or extreme fatigue. Your Current Medications: CONTINUE TAKING THE FOLLOWING MEDICATIONS: Metoprolol*. Prescription Medications: Zofran (orally disintegrating tablets) 4 mg: take 1 orally every 8 hours as needed for nausea and vomiting. Dispense ten (10). No refill. Substitution is permissible. [place] 5 mg / 325 mg tablets: take 1 orally every 6 hours as needed for pain. Dispense ten (10). No refill. Substitution is permissible. Follow-up: Return to the emergency department as needed. Follow up with your doctor in three days. Reason for referral: recheck today's concerns. Screening today revealed the patient's blood pressure to be in the normal range. The patient should follow up with a primary care provider for blood pressure management. Understanding of the discharge instructions verbalized by patient. ADDITIONAL INFORMATION Headache [Unspecified] The cause of your headache today is not clear, but it does not appear to be the sign of any serious illness. Under stress, some people tense the muscles of their shoulder, neck and scalp without knowing it. If this condition lasts long enough, a TENSION HEADACHE can occur. A MIGRAINE HEADACHE is caused by changes in blood flow to the brain. A migraine attack may be triggered by emotional stress, hormone changes during the menstrual cycle, oral contraceptives, alcohol use, certain foods containing tyramine, eye strain, weather changes, missing meals, lack of sleep or oversleeping. Other causes of headache include a viral illness with high fever, head injury with concussion, sinus, ear or throat infection, dental pain and TMJ (jaw joint) pain. More serious but less common causes of headache include stroke, brain hemorrhage, brain tumor, meningitis and encephalitis. Home Care: If you were given pain medicine for this headache, do not drive yourself home. Arrange for a ride, instead. When you get home, try to sleep. You should feel much better when you wake up. Apply heat to the back of your neck to relieve neck muscle spasm. Migraine headaches may respond best to an ice pack on the forehead or at the base of the skull. If you are having nausea or vomiting, follow a light diet until your headache is relieved. If you have a migraine type headache, use sunglasses when in the daylight or around bright indoor lighting until symptoms improve. Bright glaring light can worsen this kind of headache. Follow Up with your doctor if the headache is not better within the next 24 hours. If you have frequent headaches you should discuss a treatment plan with your primary care doctor. By being aware of the earliest signs of headache, and starting treatment right away, you may be able to stop the pain yourself. Get Prompt Medical Attention if any of the following occur: Worsening of your head pain or no improvement within 24 hours Repeated vomiting (unable to keep liquids down) Fever of 100.4F (38C) or higher, or as directed by your healthcare provider Stiff neck Extreme drowsiness, confusion or fainting Dizziness, vertigo (dizziness with spinning sensation) Weakness of an arm or leg or one side of the face Difficulty with speech or vision Ondansetron Oral disintegrating tablet What is this medicine? ONDANSETRON (on BRANDON se misael) is used to treat nausea and vomiting caused by chemotherapy. It is also used to prevent or treat nausea and vomiting after surgery. How should I use this medicine? These tablets are made to dissolve in the mouth. Do not try to push the tablet through the foil backing. With dry hands, peel away the foil backing and gently remove the tablet. Place the tablet in the mouth and allow it to dissolve, then swallow. While you may take these tablets with water, it is not necessary to do so. Talk to your lead section supervisor regarding the use of this medicine in children. Special care may be needed. What side effects may I notice from receiving this medicine? Side effects that you should report to your doctor or health child caregiver private home as soon as possible: allergic reactions like skin rash, itching or hives, swelling of the face, lips, or tongue breathing problems dizziness fast or irregular heartbeat feeling faint or lightheaded, falls fever and chills swelling of the hands and feet tightness in the chest Side effects that usually do not require medical attention (report to your doctor or health child caregiver private home if they continue or are bothersome): constipation or diarrhea headache What may interact with this medicine? Do not take this medicine with any of the following medications: -apomorphine -cisapride -dofetilide -dronedarone -pimozide -thioridazine -ziprasidone This medicine may also interact with the following medications: -carbamazepine -phenytoin -rifampicin -tramadol -other medicines that prolong the QT interval (cause an abnormal heart rhythm) What if I miss a dose? If you miss a dose, take it as soon as you can. If it is almost time for your next dose, take only that dose. Do not take double or extra doses. Where should I keep my medicine? Keep out of the reach of children. Store between 2 and 30 degrees C (36 and 86 degrees F). Throw away any unused medicine after the expiration date. What should I tell my health care provider before I take this medicine? They need to know if you have any of these conditions: heart disease history of irregular heartbeat liver disease low levels of magnesium or potassium in the blood an unusual or allergic reaction to ondansetron, granisetron, other medicines, foods, dyes, or preservatives or trying to get breast-feeding What should I watch for while using this medicine? Check with your doctor or health child caregiver private home as soon as you can if you have any sign of an allergic reaction. Hydrocodone Bitartrate, Acetaminophen Oral tablet What is this medicine? ACETAMINOPHEN; HYDROCODONE (a set a ESE mau fen; dolly droe KOE done) is a pain reliever. It is used to treat mild to moderate pain. How should I use this medicine? Take this medicine by mouth. Swallow it with a full glass of water. Follow the directions on the prescription label. If the medicine upsets your stomach, take the medicine with food or milk. Do not take more than you are told to take. Talk to your lead section supervisor regarding the use of this medicine in children. This medicine is not approved for use in children. What side effects may I notice from receiving this medicine? Side effects that you should report to your doctor or health child caregiver private home as soon as possible: allergic reactions like skin rash, itching or hives, swelling of the face, lips, or tongue breathing problems confusion feeling faint or lightheaded, falls stomach pain yellowing of the eyes or skin Side effects that usually do not require medical attention (report to your doctor or health child caregiver private home if they continue or are bothersome): nausea, vomiting stomach upset What may interact with this medicine? alcohol antihistamines isoniazid medicines for depression, anxiety, or psychotic disturbances medicines for sleep muscle relaxants naltrexone narcotic medicines (opiates) for pain phenobarbital ritonavir tramadol What if I miss a dose? If you miss a dose, take it as soon as you can. If it is almost time for your next dose, take only that dose. Do not take double or extra doses. Where should I keep my medicine? Keep out of the reach of children. This medicine can be abused. Keep your medicine in a safe place to protect it from theft. Do not share this medicine with anyone. Selling or giving away this medicine is dangerous and against the law. Store at room temperature between 15 and 30 degrees C (59 and 86 degrees F). Protect from light. Keep container tightly closed. Throw away any unused medicine after the expiration date. Discard unused medicine and used packaging carefully. Pets and children can be harmed if they find used or lost packages. What should I tell my health care provider before I take this medicine? They need to know if you have any of these conditions: brain tumor Crohn's disease, inflammatory bowel disease, or ulcerative colitis drink more than 3 alcohol-containing drinks per day drug abuse or addiction head injury heart or circulation problems kidney disease or problems going to the bathroom liver disease lung disease, asthma, or breathing problems an unusual or allergic reaction to acetaminophen, hydrocodone, other opioid analgesics, other medicines, foods, dyes, or preservatives or trying to get breast-feeding What should I watch for while using this medicine? Tell your doctor or health child caregiver private home if your pain does not go away, if it gets worse, or if you have new or a different type of pain. You may develop tolerance to the medicine. Tolerance means that you will need a higher dose of the medicine for pain relief. Tolerance is normal and is expected if you take the medicine for a long time. Do not suddenly stop taking your medicine because you may develop a severe reaction. Your body becomes used to the medicine. This does NOT mean you are addicted. Addiction is a behavior related to getting and using a drug for a non-medical reason. If you have pain, you have a medical reason to take pain medicine. Your doctor will tell you how much medicine to take. If your doctor wants you to stop the medicine, the dose will be slowly lowered over time to avoid any side effects. You may get drowsy or dizzy when you first start taking the medicine or change doses. Do not drive, use machinery, or do anything that may be dangerous until you know how the medicine affects you. Stand or sit up slowly. There are different types of narcotic medicines (opiates) for pain. If you take more than one type at the same time, you may have more side effects. Give your health care provider a list of all medicines you use. Your doctor will tell you how much medicine to take. Do not take more medicine than directed. Call emergency for help if you have problems breathing. The medicine will cause constipation. Try to have a bowel movement at least every 2 to 3 days. If you do not have a bowel movement for 3 days, call your doctor or health child caregiver private home. Too much acetaminophen can be very dangerous. Do not take Tylenol (acetaminophen) or medicines that contain acetaminophen with this medicine. Many non-prescription medicines contain acetaminophen. Always read the labels carefully. You have been given the following additional information: Headache, Unspecified Ondansetron Oral disintegrating tablet Hydrocodone Bitartrate, Acetaminophen Oral tablet (Electronically signed by Ernie Rabago Dr. 10/06/2016 9:51)
== END 2016-09-29 18:24 | disposition home or self-care (01) ==
LOC: ED SRH 15:16
DX: R51 Headache (principal); R11.0 Nausea; Z79.899 Other long term (current) drug therapy